=== PATIENT | female | born 1970 | race African-American/Black ===

== ENCOUNTER 2017-06-26 20:50 | Emergency (ER) | payer OTHER, SELFPAY ==
[2017-06-26] MEDS ORDERED: Lidocaine 1% PF 5 ML VIAL ONE (22:37)
== END 2017-06-26 23:26 | disposition home or self-care (01) ==
LOC: ERS 20:50
DX: L03.116 Cellulitis of left lower limb (principal); L02.416 Cutaneous abscess of left lower limb; E11.9 Type 2 diabetes mellitus without complications; F17.210 Nicotine dependence, cigarettes, uncomplicated; Z79.84 Long term (current) use of oral hypoglycemic drugs; Z79.899 Other long term (current) drug therapy
CPT/HCPCS: 10060; J2001

== ENCOUNTER 2017-09-09 15:41 | Emergency (ER) | payer OTHER | END 2017-09-09 15:49 | disposition left against medical advice (07) | LOC: ERS 15:41 | DX: Z53.21 Procedure and treatment not carried out due to patient leaving prior to being seen by health care provider (principal) ==

== ENCOUNTER 2017-09-20 19:22 | Emergency (ER) | payer OTHER, SELFPAY ==
[2017-09-20] MEDS ORDERED: Ketorolac Tromethamine 30 MG/ML VIAL ONE (21:15)
[2017-09-20 21:32] LABS: #Basophils 0.1 thou/uL (0.0-0.2); #Eosinphils 0.2 thou/uL (0.0-0.7); #Lymphocytes 2.4 thou/uL (1.20-3.40); #Monocytes 0.4 thou/uL (0.11-0.59); %Basophils 1.1 % (0.0-1.0); %Eosinophils 2.7 % (0.0-10.0); %Lymphocytes 33.4 % (21.0-51.0); %Monocytes 5.5 % (0.0-10.0); %Neutrophils 57.2 % (42.0-75.0); Mean Corpuscular HGB CONC 33.8 g/dL (32.0-36.0); Mean Corpuscular Hemoglobin 31.1 pg (27.0-31.0); Mean Corpuscular Volume 91.9 fl (81.0-99.0); Platelet Count 315 thou/uL (130-400); RBC Distribution Width 11.6 % (11.5-14.5); Red Blood Cell (RBC) Count 4.51 mill/uL (4.20-5.40)
[2017-09-20 21:52] LABS: ALT (SGPT) 11 U/L (8-55); AST (SGOT) 11 U/L (5-34); Albumin 3.4 g/dL (3.5-5.0); Alkaline Phosphatase 108 U/L (40-150); Anion Gap 15 mmol/L (10-20); BUN (Urea Nitrogen) 12 mg/dL (7.0-18.7); Bilirubin, Total 0.2 mg/dL (0.2-1.2); CRP (Inflammatory) 1.41 mg/dL (= or < 0.5); Calc. Creatinine Clearance 0 mL/min (70-130); Carbon Dioxide 22 mmol/L (22-29); Chloride 104 mmol/L (98-107); Estimated GFR-MDRD 73; Globulin 3.4 g/dL (2.4-3.5); Glucose 418 mg/dL (70-105); Potassium 4.2 mmol/L (3.5-5.1); Protein, Total 6.8 g/dL (6.0-8.3); Sodium 137 mmol/L (136-145)
[2017-09-20] MEDS ORDERED: Insulin Regular 300 UNITS/3 ML VIAL ONE (22:02)
--- NOTE | 2017-09-20 22:09 | ULT ---
RIGHT LOWER EXTREMITY VENOUS DUPLEX EXAM: 09/20/17 HISTORY: Swelling and edema of the right foot. Ultrasound images show a large cystic mass in the right groin which is lateral to the femoral artery. This cystic mass is circumscribed and measures approximately 4 x 6 cm. There is no flow within this mass. The veins of the right lower extremity evaluated with color doppler, spectral analysis and compressio n. There is no evidence of DVT. The veins show normal compression and blood flow. IMPRESSION: 1. There is a large cystic mass in the right groin. This is not a pseudoaneurysm. Could represen t seroma or hematoma. This is not tender according to the technologist. 2. No evidence of right lower extremity venous thrombosis. POS: [facility]
--- NOTE | 2017-09-20 22:18 | RAD ---
RIGHT FOOT: 09/20/17 Three views. HISTORY: Right foot pain. COMPARISON: Right foot films of 10/05/15. Enthesophytes from the posterior and plantar calcaneus are again seen and unchanged. Review of the tarsals reveals what appears to be an ununited fracture involving the navicular seen on ly on the AP projection. This is a new finding when compared to the prior exam of 10/05/15. The tarsals are otherwise unremarkable with mild degenerative changes noted in the intertarsal joints and tarsometatarsal joints. The metatarsals and phalanges appear intact. There are mild degenerative changes at the first MTP neymar nt which appears stable. 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 This is a new finding when compared to the exam of 10/05/15. POS: [facility]
[2017-09-20] MEDS ORDERED: Morphine 4 MG/ML Carpuject ONE ×2 (22:21→22:25)
[2017-09-20] MEDS ORDERED: Ondansetron HCl/PF 4 MG/2 ML Vial ONE (22:21)
== END 2017-09-20 23:38 | disposition home or self-care (01) ==
LOC: ERS 19:22
DX: S92.253A Displaced fracture of navicular [scaphoid] of unspecified foot, initial encounter for closed fracture (principal); E11.9 Type 2 diabetes mellitus without complications; F17.210 Nicotine dependence, cigarettes, uncomplicated; Z79.899 Other long term (current) drug therapy; X50.1XXA Overexertion from prolonged static or awkward postures, initial encounter; Y93.01 Activity, walking, marching and hiking
CPT/HCPCS: 36416; 80053; 85025; 86140; 96365; 96375; J1815; J1885; J2270; J2405; J3370

== ENCOUNTER 2017-10-03 12:03 | Outpatient (CLI) | payer SELFPAY ==
[2017-10-03 13:18] LABS: Hemoglobin 13.7 g/dL (12.0-16.0); Mean Corpuscular HGB CONC 34.2 g/dL (32.0-36.0); Mean Corpuscular Hemoglobin 31.4 pg (27.0-31.0); Mean Corpuscular Volume 91.7 fl (81.0-99.0); Mean Platelet Volume 7.6 fL (7.4-10.4); Platelet Count 394 thou/uL (130-400); RBC Distribution Width 11.2 % (11.5-14.5); Red Blood Cell (RBC) Count 4.38 mill/uL (4.20-5.40); White Blood Cell (WBC) Count 5.9 thou/uL (4.8-10.8)
[2017-10-03 13:46] LABS: ALT (SGPT) 9 U/L (8-55); AST (SGOT) 8 U/L (5-34); Albumin 3.4 g/dL (3.5-5.0); Alkaline Phosphatase 114 U/L (40-150); Anion Gap 11 mmol/L (10-20); BUN (Urea Nitrogen) 13 mg/dL (7.0-18.7); Bilirubin, Total 0.2 mg/dL (0.2-1.2); Calc. Creatinine Clearance 0 mL/min (70-130); Calcium 8.6 mg/dL (7.8-10.44); Carbon Dioxide 27 mmol/L (22-29); Chloride 104 mmol/L (98-107); Estimated GFR-MDRD 80; Globulin 3.1 g/dL (2.4-3.5); Glucose 349 mg/dL (70-105); Potassium 4.1 mmol/L (3.5-5.1); Protein, Total 6.5 g/dL (6.0-8.3); Sodium 138 mmol/L (136-145)
== END 2017-10-03 12:04 | disposition home or self-care (01) ==
LOC: LABBT 12:03
PROVIDERS: ATTEND Orthopaedic Surgery
DX: Z01.812 Encounter for preprocedural laboratory examination (principal); S92.251A Displaced fracture of navicular [scaphoid] of right foot, initial encounter for closed fracture
CPT/HCPCS: 80053; 85027; 85652; 86140

== ENCOUNTER 2017-10-06 10:55 | Day surgery (SDC) | payer OTHER, SELFPAY ==
[2017-10-03 12:26] VITALS: BMI 34.0
[2017-10-06] MEDS ORDERED: CEFAZOLIN/Water 2 GM/20 ML SYRINGE ONE (12:05)
[2017-10-06] MEDS ORDERED: Insulin Regular 300 UNITS/3 ML VIAL ONE (13:37)
[2017-10-06] MEDS ORDERED: Fentanyl 100 MCG/2 ML VIAL ONE ×4 (13:38→16:32)
[2017-10-06] MEDS ORDERED: Ondansetron HCl/PF 4 MG/2 ML Vial ONE (14:57)
[2017-10-06] MEDS ORDERED: Lidocaine 1% PF 5 ML VIAL ONE (14:57)
[2017-10-06] MEDS ORDERED: Ketorolac Tromethamine 30 MG/ML VIAL ONE (14:57)
[2017-10-06] MEDS ORDERED: PHENYLEPHRINE-NS 100 MCG/ML 10 ML SYRINGE ONE (14:57)
[2017-10-06] MEDS ORDERED: PROPOFOL 200 MG/20 ML VIAL ONE (14:57)
[2017-10-06] MEDS ORDERED: Bupivacaine 0.25% HCL 30 ML VIAL ONE (15:51)
[2017-10-06] MEDS ORDERED: Bupivacaine PF 0.5% 30 ML VIAL ONE (15:51)
[2017-10-06] MEDS ORDERED: Promethazine HCl 25 MG/ML VIAL IM PRN (16:15)
[2017-10-06] MEDS ORDERED: Promethazine HCl 25 MG/ML VIAL SLOW IVP PRN (16:15)
[2017-10-06] MEDS ORDERED: Ondansetron HCl/PF 4 MG/2 ML Vial IVP PRN (16:15)
--- NOTE | 2017-10-06 17:11 | RAD ---
THREE VIEWS OF THE RIGHT FOOT: Indication: Open reduction internal fixation. Comparison: 09-20-17 IMPRESSION: Since the comparison examination there has been open reduction and internal fixation of the navicular fracture. Fracture alignment is near anatomic. Screw fixation projects in the appropriate position. POS: [facility]
[2017-10-06] MEDS ORDERED: HYDROcodone/Acetaminophen 5/325 mg Tablet ONE (17:47)
--- NOTE | 2017-10-07 14:32 | OP ---
DATE OF SURGERY: 10/06/2017 PREOPERATIVE DIAGNOSIS: Right foot navicular fracture. POSTOPERATIVE DIAGNOSIS: Right foot navicular fracture. SURGICAL PROCEDURE: Open reduction internal fixation, right navicular fracture. ANESTHESIA: General. SURGEON: Jeffrey Guadarrama M.D. TOURNIQUET TIME: Zero. BLOOD LOSS: Less than 5 mL. IMPLANTS: Synthes 3.5 mm cannulated screws x2. COMPLICATIONS: None. DRAINS: None. SPECIMEN: None. OUTCOME: Satisfactory. INDICATIONS: Patient is a 47-year-old lady, who is status post trip and fall sustaining trauma to he r right midfoot. X-rays have confirmed a transverse fracture of the mid body of the right navicular with gapping. After discussion with patient including risks and benefits, we have decided to proceed with open reduction internal fixation. Informed consent has been obtained. I believe all questions answered. PROCEDURE: The patient was brought to the operating room and a timeout performed followed by inducti on of general anesthesia. Next, a sterile prep and drape was performed of the right lower extremity. Next, under C-arm localization, 2 incisions were made; 1 along the medial aspect of the foot overly ing the navicular bone and the other one laterally. After these incisions were made, dissection was carried down bluntly to the underlying bone and then a Callejas bone clamp was passed through each incis ion clamping the fracture and getting anatomic alignment. This was then followed by insertion of 2 p artially threaded K-wires from the medial aspect of the foot across the fracture line into the latera l fragment. Once appropriately positioned, measurement was taken off of these guidewires and then tw o 28 mm long partially threaded cancellous screws were passed over the guidewire, getting excellent c ompression across the fracture. The guidewires were then removed and the final AP, lateral, and obli que C-arm images were obtained. The wound was then irrigated with normal saline and then closed in l paul with 2-0 Vicryl and 4-0 nylon in horizontal mattress fashion. A Xeroform gauze, Webril, and po sterior fiberglass splint was applied to the leg and then patient was transferred to recovery room in stable condition. There were no complications. She tolerated the procedure well.
== END 2017-10-06 18:30 | disposition home or self-care (01) ==
LOC: SDC 10:55
PROVIDERS: ATTEND Orthopaedic Surgery
PROC: 0PSM04Z Reposition Right Carpal with Internal Fixation Device, Open Approach (ICD-10-PCS; principal; 2017-10-06)
DX: S92.251A Displaced fracture of navicular [scaphoid] of right foot, initial encounter for closed fracture (principal); E11.9 Type 2 diabetes mellitus without complications; F17.200 Nicotine dependence, unspecified, uncomplicated; Z79.84 Long term (current) use of oral hypoglycemic drugs; Z90.710 Acquired absence of both cervix and uterus; Z98.890 Other specified postprocedural states; Z83.3 Family history of diabetes mellitus
CPT/HCPCS: 36416; 76001; 96374; C1713; C1769; J1815; J1885; J2001; J2405; J2704; J3010; S0020

== ENCOUNTER 2017-12-31 10:20 | Outpatient (CLI) | payer OTHER, SELFPAY | END 2017-12-31 10:21 | disposition home or self-care (01) | LOC: LABBT 10:20 | PROVIDERS: ATTEND Orthopaedic Surgery | DX: Z01.818 Encounter for other preprocedural examination (principal); S92.254 Nondisplaced fracture of navicular [scaphoid] of right foot ==

== ENCOUNTER 2018-01-07 10:43 | Day surgery (SDC) | payer OTHER, SELFPAY ==
[2017-12-31 10:36] VITALS: BMI 31.0
[2018-01-07] MEDS ORDERED: CEFAZOLIN/Water 2 GM/20 ML SYRINGE ONE (11:04)
[2018-01-07] MEDS ORDERED: Midazolam HCl 2 mg/2 ml Vial ONE ×2 (11:37→12:25)
[2018-01-07] MEDS ORDERED: Fentanyl 100 MCG/2 ML VIAL ONE ×3 (11:37→15:10)
[2018-01-07] MEDS ORDERED: Ondansetron HCl/PF 4 MG/2 ML Vial IVP PRN (12:23)
[2018-01-07] MEDS ORDERED: Zolpidem Tartrate 5 MG TAB PO PRN (12:23)
[2018-01-07] MEDS ORDERED: Ketorolac Tromethamine 30 MG/ML VIAL IVP PRN (12:23)
[2018-01-07] MEDS ORDERED: Ropivacaine HCl/PF 1,000 MG in Sodium Chloride 0.9% 400 ML NERVE BLCK SCH (12:23)
[2018-01-07] MEDS ORDERED: Promethazine HCl 25 MG/ML VIAL IM PRN (12:23)
[2018-01-07] MEDS ORDERED: Ondansetron HCl/PF 4 MG/2 ML Vial ONE ×2 (12:25→14:29)
[2018-01-07] MEDS ORDERED: Bupivacaine HCl 0.5%/Epinephrine 1:200,000/PF 30 ml Vial ONE ×2 (13:23→14:22)
[2018-01-07] MEDS ORDERED: Ropivacaine 0.2% HCl/PF (40 MG/20 ML VIAL) ONE (14:22)
[2018-01-07] MEDS ORDERED: Ropivacaine 0.5% HCl/PF (150 MG/30 ML VIAL) ONE (14:22)
[2018-01-07] MEDS ORDERED: ePHEDrine/0.9% NaCl/PF SYRINGE 50 mg/10 ml ONE (14:29)
[2018-01-07] MEDS ORDERED: PROPOFOL 200 MG/20 ML VIAL ONE (14:29)
[2018-01-07] MEDS ORDERED: Dexamethasone 20 MG/5 ML VIAL ONE (14:29)
[2018-01-07] MEDS ORDERED: Ketorolac Tromethamine 30 MG/ML VIAL ONE ×2 (14:29→14:57)
[2018-01-07] MEDS ORDERED: Lidocaine 1% PF 5 ML VIAL ONE (14:29)
--- NOTE | 2018-01-07 18:14 | RAD ---
RIGHT FOOT THREE VIEWS: 01/07/18 HISTORY: Intraoperative films showing hardware removal and replacement. COMPARISON: 10/06/17 C-arm study. Since that examination, there has now been a plate and screws placed across the navicular fracture. T he previously noted screws have been removed. IMPRESSION: Postoperative changes with plate and screws placed across the navicular fracture. POS: [facility]
--- NOTE | 2018-01-08 12:21 | OP ---
DATE OF OPERATION: 01/07/2018 OPERATIONS: 1. Open reduction and internal fixation of right navicular fracture. 2. Hardware removal from right navicular bone. 3. Bone graft from right calcaneus to right navicular. PREOPERATIVE DIAGNOSIS: Right navicular fracture nonunion. POSTOPERATIVE DIAGNOSIS: Right navicular fracture nonunion. COMPLICATIONS: None. SURGEON: Matt Freeman M.D. ANESTHESIA: General plus local. IMPLANTS: Synthes mini fragment plate with 2.7 mm locking screws was used. INDICATIONS: Ms. Weiner is a 47-year-old female who has developed a nonunion of a navicular fractur e. She was treated previously with fixation of the navicular; however, her bone fail to heal. She w as indicated for bone grafting and open reduction and internal fixation of the navicular bone to rest ore function and relieve pain and promote healing. Risks have been reviewed in detail. She has elec bryanna to proceed with the operation. DESCRIPTION OF PROCEDURE: Ms. Weiner was identified in the preoperative holding area. Her correct extremity was marked. She was given intravenous antibiotics. She was carried to the operating room and positioned supine. General anesthesia was induced. At this point, we began the procedure with a dorsal approach to the navicular bone. We dissected lauren n through the subcutaneous tissues, protecting neurovascular structures and tendons. We exposed the underlying navicular and fracture site. There was clearly nonunion of the fracture. At this point, we removed the percutaneously placed screws from the medial navicular. We then freed up the fracture site shingling the bone with an osteotome. At this point, a small incision was made over the calcan eus. We then used an osteotome to open the lateral cortex of the calcaneus and used a curette to lori vest bone graft from the calcaneus. This was packed into the fracture site. We then placed a reduct ion tenaculum across the navicular reducing the fracture back into its anatomic position. At this po int, we placed a Synthes mini fragment footplate over the dorsal cortex of the navicular. Multiple s crews were placed on either side of the fracture fixing the bone rigidly. We took x-ray images confi rming hardware placement and reduction. There were no complications. At this point, we thoroughly i rrigated with copious lavage. We then closed with 0 Vicryl suture, 2-0 Vicryl suture and nylon for t he skin and a splint was placed.
== END 2018-01-07 16:52 | disposition home or self-care (01) ==
LOC: SDC 10:43
PROVIDERS: ATTEND Orthopaedic Surgery
PROC: 0QUL07Z Supplement Right Tarsal with Autologous Tissue Substitute, Open Approach (ICD-10-PCS; principal; 2018-01-07)
PROC: 0SPH04Z Removal of Internal Fixation Device from Right Tarsal Joint, Open Approach (ICD-10-PCS; principal; 2018-01-07)
PROC: 0QSL04Z Reposition Right Tarsal with Internal Fixation Device, Open Approach (ICD-10-PCS; principal; 2018-01-07)
DX: S92.251K Displaced fracture of navicular [scaphoid] of right foot, subsequent encounter for fracture with nonunion (principal); E11.9 Type 2 diabetes mellitus without complications; F17.210 Nicotine dependence, cigarettes, uncomplicated; Z79.84 Long term (current) use of oral hypoglycemic drugs; Z98.890 Other specified postprocedural states
CPT/HCPCS: 76000; 96374; J0670; J1100; J1885; J2001; J2250; J2405; J2704; J2795; J3010; J7050

== ENCOUNTER 2018-09-28 16:32 | Observation (INO) | payer OTHER, SELFPAY ==
[2018-09-28 19:58] LABS: #Basophils 0.1 thou/uL (0.0-0.2); #Eosinphils 0.2 thou/uL (0.0-0.7); #Lymphocytes 2.5 thou/uL (1.20-3.40); #Monocytes 0.4 thou/uL (0.11-0.59); #Neutrophils 2.3 thou/uL (1.40-6.50); %Basophils 1.5 % (0.0-1.0); %Eosinophils 4.5 % (0.0-10.0); %Lymphocytes 44.7 % (21.0-51.0); %Monocytes 7.9 % (0.0-10.0); %Neutrophils 41.4 % (42.0-75.0); Hemoglobin 12.6 g/dL (12.0-16.0); Mean Corpuscular HGB CONC 33.9 g/dL (32.0-36.0); Mean Corpuscular Hemoglobin 30.7 pg (27.0-31.0); Mean Corpuscular Volume 90.5 fL (78.0-98.0); Mean Platelet Volume 8.5 fL (7.4-10.4); Platelet Count 272 thou/uL (130-400); RBC Distribution Width 11.7 % (11.5-14.5); Red Blood Cell (RBC) Count 4.09 mill/uL (4.20-5.40); White Blood Cell (WBC) Count 5.5 thou/uL (4.8-10.8)
[2018-09-28] MEDS ORDERED: Clindamycin/D5W 600 mg/50 ml Premix Bag ONE (20:20)
[2018-09-28 20:23] LABS: ALT (SGPT) 7 U/L (8-55); AST (SGOT) 8 U/L (5-34); Albumin 3.4 g/dL (3.5-5.0); Alkaline Phosphatase 129 U/L (40-150); Anion Gap 11 mmol/L (10-20); BUN (Urea Nitrogen) 9 mg/dL (7.0-18.7); Bilirubin, Total 0.4 mg/dL (0.2-1.2); Calc. Creatinine Clearance 0 mL/min (70-130); Calcium 9.2 mg/dL (7.8-10.44); Carbon Dioxide 26 mmol/L (22-29); Chloride 103 mmol/L (98-107); Estimated GFR-MDRD 79; Globulin 2.8 g/dL (2.4-3.5); Glucose 321 mg/dL (70-105); Potassium 3.9 mmol/L (3.5-5.1); Protein, Total 6.2 g/dL (6.0-8.3); Sodium 136 mmol/L (136-145)
[2018-09-28] MEDS ORDERED: Morphine 4 MG/ML VIAL ONE (20:39)
[2018-09-28] MEDS ORDERED: Morphine 4 MG/ML VIAL SLOW IVP PRN (23:20)
[2018-09-28] MEDS ORDERED: Ondansetron ODT 4 MG TAB SL PRN (23:20)
[2018-09-28] MEDS ORDERED: Ondansetron PF 4 MG/2 ML Vial IVP PRN (23:20)
[2018-09-28] MEDS ORDERED: Acetaminophen 325 MG TAB PO PRN (23:20)
[2018-09-29] MEDS ORDERED: Morphine 4 MG/ML VIAL ONE (00:32)
[2018-09-29 02:12] VITALS: BMI 28.6
[2018-09-29] MEDS: Sodium Chloride 0.9% 1,000 ML IV SCH ×2 (03:02→08:34)
[2018-09-29] MEDS ORDERED: HumaLOG 300 UNITS/3 ML VIAL SC PRN (03:52)
[2018-09-29] MEDS ORDERED: Dextrose 50% Abboject 50 ML SYRINGE SLOW IVP PRN (03:52)
[2018-09-29] MEDS ORDERED: Dextrose 5% in Water 1,000 ML IV PRN (03:52)
[2018-09-29] MEDS ORDERED: HumaLOG 300 UNITS/3 ML VIAL SC SCH (04:00)
[2018-09-29] MEDS ORDERED: Clindamycin/D5W 600 MG in Premix Bag 1 BAG IVPB SCH ×2 (04:00→09:00)
[2018-09-29 08:03] LABS: Hemoglobin A1c 11.5 % (4.0-6.0)
[2018-09-29] MEDS: Lisinopril 20 MG TAB PO SCH (08:43)
[2018-09-29] MEDS: Ibuprofen 800 MG TAB PO PRN ×2 (10:42→18:27)
[2018-09-29] MEDS: HYDROcodone/Acetaminophen 5/325 mg Tablet PO PRN ×3 (10:42→21:14)
[2018-09-29] MEDS ORDERED: Acetaminophen 325 MG TAB PO PRN (11:24)
[2018-09-29] MEDS ORDERED: Senokot S 8.6-50 MG TAB PO PRN (11:24)
[2018-09-29] MEDS ORDERED: Ondansetron ODT 4 MG TAB PO PRN (11:24)
[2018-09-29] MEDS ORDERED: Ondansetron PF 4 MG/2 ML Vial IVP PRN (11:24)
[2018-09-29] MEDS: HumaLOG 300 UNITS/3 ML VIAL SC PRN ×2 (11:56→18:05)
[2018-09-29] MEDS: Nicotine 14 MG PATCH TD SCH (12:00)
[2018-09-29] MEDS: Clindamycin/D5W 600 MG in Premix Bag 1 BAG IVPB SCH ×2 (12:00→21:10)
[2018-09-29] MEDS: Mupirocin 2% Ointment 22 GM Tube TOP SCH ×2 (14:26→21:11)
--- NOTE | 2018-09-29 17:39 | HP ---
PRIMARY CARE PHYSICIAN: Elise Randle. CHIEF COMPLAINT: Ear sore with spreading pain. HISTORY OF PRESENT ILLNESS: This is a 48-year-old female, known history of diabetes mellitus type 2 poorly controlled, has not been seeing a doctor recently due to no insurance that she recently got insurance to her job. She reports that 5 days ago she developed a painful sore on the top of her right ear. She reports that the day before she had felt something crawl there and fall off onto her shirt when she was never and she did feel any pain at that time. She developed sore that got increasingly painful, red and the redness and pain started spreading down her ear, then pain started spreading down behind her ear and onto her neck. She had a little bit of nausea, no fever, a little bit of cough, congestion, and sore throat as well. She was seen in the emergency room, given Bactrim. She had tried some Neosporin ointment for one day only and was told not to use anymore. After a couple of doses of Bactrim, the pain and swelling were getting worse, so she came back to the ER and so she was put in the hospital for IV antibiotics with dose of clindamycin ordered from the emergency room. PAST MEDICAL HISTORY: 1. Diabetes mellitus type 2, on oral hypoglycemics. 2. Previous TIA. 3. Obesity. 4. Hypertriglyceridemia. 5. Hypertension per previous discharge summary of the hospital. She does not know about this diagnosis. 6. Diabetic peripheral neuropathy. PAST SURGICAL HISTORY: 1. Partial hysterectomy. 2. Tubal ligation. 3. Cholecystectomy. SOCIAL HISTORY: The patient smokes a pack of cigarettes per day. No alcohol or illicit drug use. 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 FAMILY HISTORY: Mother of diabetes and its complications at age 65. Father was shot down when she was 3 years old. There is also history of cancer in the family. ALLERGIES: NO KNOWN DRUG ALLERGIES. CURRENT MEDICATIONS: Glipizide extended release 10 mg twice a day. She was recommended to be on aspirin, low-dose lisinopril, and atorvastatin after her last hospitalization for TIA in 2016, however, she has not been taking these for a long time. REVIEW OF SYSTEMS: CONSTITUTIONAL: No fevers. No chills. EYES: No double vision or blurred vision. ENT: See HPI. CARDIOVASCULAR: No chest pain. No palpitations or racing heart. PULMONARY: See HPI. No shortness of breath or wheezing. GASTROINTESTINAL: Nausea. No vomiting. No abdominal pain. No diarrhea or constipation. GENITOURINARY: No dysuria or hematuria. MUSCULOSKELETAL: No muscle aches or joint pains. SKIN: See HPI. NEUROLOGIC: She has chronic numbness and tingling in bilateral feet and legs from diabetic neuropathy. No other focal neurologic symptoms. PHYSICAL EXAMINATION: VITAL SIGNS: Blood pressure 170/83, pulse 95, respirations 20, O2 saturation 98 % on room air, and temperature 98.0. GENERAL: This is a well-developed, obese female, in no acute distress. HEENT: Pupils equal, round, and reactive to light. Oropharynx clear without lesions, erythema, or exudate. Her bilateral external auditory canals are clear. However, her right ear at the top of the external ear over the cartilage, she has a large about 2 cm area of some induration with excoriation and loss of the epidermis, ulceration. No drainage from this. No pus pockets or fluctuance noted. Minimal erythema looks very macerated and irritated, and then she has some tenderness in the posterior mastoid area and posterior auricular lymph nodes. There is no significant swelling in this area. No redness. NECK: Supple. No lymphadenopathy. No thyroid nodules or enlargement. No JVD. HEART: Regular rate and rhythm. No murmurs, rubs, or gallops. LUNGS: Clear to auscultation bilaterally. No wheezes, crackles, or rhonchi. ABDOMEN: Soft and nontender to palpation. Normoactive bowel sounds. No hepatosplenomegaly or other masses. EXTREMITIES: No clubbing, cyanosis, or edema. SKIN: See ENT exam above. No other skin lesions noted. NEUROLOGIC: She has intact strength in all extremities. No facial droop. LABORATORY DATA: CBC within normal limits. Complete metabolic panel notable for glucose of 321 and an albumin of 3.4. The rest was normal. ASSESSMENT: 1. Infected skin abscess/ulcer on right external ear with spreading symptoms. This is failed outpatient oral antibiotic therapy, so we will do clindamycin over the course of today and reassess in the morning. If it improves on the clindamycin, then we can send her home with oral clindamycin. She does have blood cultures pending; however, she does not have any evidence of sepsis, so I doubt those will come back positive. Other possibilities are just looks like it could be a skin allergy. However, the patient denies having used any regular chemicals in this area and just used Neosporin for 1 day when it was already irritated. It might also be a toxic effect from an insect bite or spider bite. We will watch closely for any signs of spreading necrosis. 2. Diabetes mellitus type 2, uncontrolled. Her hemoglobin A1c is above 11. The patient will need to have her medications titrated up. I am going to go ahead and she states that she cannot take metformin due to diarrhea, it persists even a year after institution. We will go ahead and start her on some Actos and continue her glipizide. We will also put her on fingerstick blood sugars and a light insulin sliding scale. She did get a little hypoglycemic when they gave her full 8 units of insulin in the emergency room for high blood sugar, so we will not go to aggressive with the insulin and also put her on a diabetic diet. 3. Elevated blood pressure. The patient does have a history of hypertension that she did not remember about it and is on no medication for it. She was started on lisinopril in the hospital here previously and we now have her on 20 mg daily given this morning. She had some elevated blood pressure this morning and not recheck yet. If it does not come down with lisinopril, we can add some more on top of that. We used some hydrochlorothiazide in addition to it. 4. Previous transient ischemic attack. We will resume low-dose aspirin and atorvastatin as recommended on her last hospitalization. 5. Tobacco abuse. Recommend that the patient quit and we will give her cessation counseling and resources. We will give her a Nicoderm patch 14 mg transdermal q.24 hours when she is in the hospital. 6. Gastrointestinal prophylaxis. The patient is on Pepcid twice a day. 7. Deep venous thrombosis prophylaxis. We will put the patient on SCDs while in bed. 8. Code status. The patient is a full code. Her nearest relative is her brother, Julio Weiner. Job ID: [id number] MTDD
[2018-09-29] MEDS ORDERED: Atorvastatin Calcium 20 MG TAB PO SCH (21:00)
[2018-09-29] MEDS: Famotidine 20 MG TAB PO SCH (21:14)
[2018-09-29] MEDS ORDERED: Melatonin 3 MG TAB PO PRN (23:53)
[2018-09-30] MEDS: HYDROcodone/Acetaminophen 5/325 mg Tablet PO PRN ×5 (03:09→18:06)
[2018-09-30] MEDS: Ibuprofen 800 MG TAB PO PRN (03:10)
[2018-09-30] MEDS: Clindamycin/D5W 600 MG in Premix Bag 1 BAG IVPB SCH ×2 (04:25→11:34)
[2018-09-30 06:32] LABS: #Basophils 0.1 thou/uL (0.0-0.2); #Eosinphils 0.2 thou/uL (0.0-0.7); #Lymphocytes 2.2 thou/uL (1.20-3.40); #Monocytes 0.4 thou/uL (0.11-0.59); #Neutrophils 1.6 thou/uL (1.40-6.50); %Basophils 1.9 % (0.0-1.0); %Eosinophils 4.1 % (0.0-10.0); %Lymphocytes 48.4 % (21.0-51.0); %Monocytes 9.4 % (0.0-10.0); %Neutrophils 36.2 % (42.0-75.0); Hemoglobin 11.1 g/dL (12.0-16.0); Mean Corpuscular HGB CONC 32.1 g/dL (32.0-36.0); Mean Corpuscular Hemoglobin 29.5 pg (27.0-31.0); Mean Corpuscular Volume 91.8 fL (78.0-98.0); Mean Platelet Volume 7.8 fL (7.4-10.4); Platelet Count 237 thou/uL (130-400); Red Blood Cell (RBC) Count 3.76 mill/uL (4.20-5.40); White Blood Cell (WBC) Count 4.5 thou/uL (4.8-10.8)
[2018-09-30 06:59] LABS: Anion Gap 11 mmol/L (10-20); BUN (Urea Nitrogen) 12 mg/dL (7.0-18.7); Calc. Creatinine Clearance 112 mL/min (70-130); Calcium 8.2 mg/dL (7.8-10.44); Carbon Dioxide 26 mmol/L (22-29); Chloride 108 mmol/L (98-107); Estimated GFR-MDRD 86; Glucose 97 mg/dL (70-105); Sodium 141 mmol/L (136-145)
--- NOTE | 2018-09-30 07:46 | PDOC.PN ---
- Subjective Encounter Start Date: 09/30/18 Encounter Start Time: 09:50 Subjective: Patient with no fever overnight. Pain in ear improved. No drainage. - Objective Resuscitation Status - Order Detail: 09/29/18 11:22 Resuscitation Status Routine Resuscitation Status: FULL: Full Resuscitation MAR Reviewed: Yes Vital Signs & Weight: Vital Signs (12 hours) Temp Pulse Resp BP Pulse Ox 09/30/18 03:05 97.8 F 80 20 137/67 97 09/29/18 23:56 97.8 F 80 18 143/74 H 99 09/29/18 20:55 97.8 F 88 18 132/62 98 Weight Admit Weight 194 lb 0.108 oz Weight 194 lb 0.108 oz I&O: 09/29/18 09/30/18 10/01/18 06:59 06:59 06:59 Intake Total 1050 4940 Balance 1050 4940 Result Diagrams: 09/30/18 06:17 09/30/18 06:17 Additional Labs: Accuchecks 09/30/18 09/29/18 09/29/18 06:12 23:15 20:57 POC Glucose 149 H 123 H 91 09/29/18 09/29/18 09/29/18 17:08 13:08 11:30 POC Glucose 214 H 289 H 216 H Phys Exam - Physical Examination Constitutional: NAD HEENT: moist MMs Ulcer on right external ear unchanged, no surrounding erythema, minimal TTP of posterior lymph nodes without swelling/redness/warmth Respiratory: no wheezing, no rales, no rhonchi Cardiovascular: RRR, no significant murmur Gastrointestinal: soft, positive bowel sounds Neurological: non-focal, moves all 4 limbs Psychiatric: normal affect, A&O x 3 Dx/Plan (1) Skin infection Code(s): L08.9 - LOCAL INFECTION OF THE SKIN AND SUBCUTANEOUS TISSUE, UNSP Status: Acute Comment: ulcer and infection to right ear, on Clindamycin (2) Diabetes mellitus type 2, uncontrolled Code(s): E11.65 - TYPE 2 DIABETES MELLITUS WITH HYPERGLYCEMIA Status: Chronic (3) Hypertension Code(s): I10 - ESSENTIAL (PRIMARY) HYPERTENSION Status: Chronic Qualifiers: Hypertension type: essential hypertension Qualified Code(s): I10 - Essential (primary) hypertension Comment: improved on Lisinopril (4) Hx-TIA (transient ischemic attack) Code(s): Z86.73 - PRSNL HX OF TIA (TIA), AND CEREB INFRC W/O RESID DEFICITS Status: Chronic Comment: Resuming Aspirin and Atorvastatin - Plan cont current plan of care, DVT proph w/SCDs D/C on oral abx today, follow up with PCP to assess healing * . - Discharge Day Encounter end time: 10:00
[2018-09-30 08:07] VITALS: TEMP 98.1
[2018-09-30] MEDS ORDERED: Pioglitazone HCl 15 MG TAB PO SCH (09:00)
[2018-09-30] MEDS ORDERED: Aspirin Chewable 81 MG TAB PO SCH (09:00)
[2018-09-30] MEDS: Famotidine 20 MG TAB PO SCH (09:14)
[2018-09-30] MEDS: Lisinopril 20 MG TAB PO SCH (09:15)
[2018-09-30] MEDS: Mupirocin 2% Ointment 22 GM Tube TOP SCH ×2 (09:16→14:23)
[2018-09-30] MEDS: Nicotine 14 MG PATCH TD SCH (11:33)
[2018-09-30] MEDS ORDERED: Sodium Chloride 0.9% 10 ML ONE (12:22)
--- NOTE | 2018-09-30 14:57 | DIS ---
DATE OF ADMISSION: 09/28/2018 DATE OF DISCHARGE: 09/30/2018 PRIMARY CARE PHYSICIAN: Elise Randle. REASON FOR ADMISSION: Right external ear infection, failed outpatient antibiotic therapy. DIAGNOSES AT DISCHARGE: 1. Infected ulcer of the right external ear. 2. Diabetes mellitus type 2, uncontrolled. 3. Hypertension. 4. Previous transient ischemic attack. PROCEDURES: None. CONSULTATIONS: None. SUMMARY OF HOSPITAL COURSE: This is a 48-year-old female with a known history of diabetes mellitus type 2, poorly controlled, not seen a doctor recently. She is on no medicine for previous diagnosis of hypertension, hyperlipidemia, and previous TIA, just takes glipizide once a day, though she holds that if she feels like her blood sugar might be low. The patient reports that she thinks she felt a bug or spider something jump off her ear last week and the next day last , she noticed a painful swelling on her right upper external ear. This has progressed over the weekend. The patient was put on Bactrim and took about a day of the medication 2 doses and did not notice any improvement, so she came back to the emergency room. In the ER, she was diagnosed with failed outpatient therapy and was put on IV clindamycin and put in the hospital. We did give her multiple doses of IV clindamycin. She had no spreading redness. No fever. No pus drainage from the ear. The skin did slough over part of the swollen area leaving an ulceration. Otherwise, the patient was doing well. We did restart blood pressure medications and medications to control cholesterol and prevent stroke. On the day of discharge, the patient was doing well. She is being discharged home. DISCHARGE MANAGEMENT: Discharged home. FOLLOWUP: The patient is to establish with a primary care physician in the next week to reassess healing of this ulceration. If it is not improving over the next 1-2 weeks, she may need outpatient subspecialty consultation with Infectious Disease or ENT. ACTIVITY: As tolerated. DIET: Diabetic low-sodium diet. MEDICATIONS: 1. Aspirin 81 mg daily, 30 tablets dispensed. 2. Atorvastatin 20 mg daily, 30 tablets dispensed. 3. Clindamycin 150 mg four times a day, 40 capsules dispensed. 4. Ibuprofen 800 mg every 8 hours as needed for pain, 30 tablets dispensed. 5. Lisinopril 20 mg daily, 30 tablets dispensed. 6. Glipizide 10 mg twice a day, 60 tablets dispensed. Job ID: [id number]
[2018-09-30] MEDS ORDERED: cloNIDine 0.1 MG TAB PO SCH (16:15)
[2018-09-30 18:22] VITALS: BP 161/79
== END 2018-09-30 18:46 | disposition home or self-care (01) ==
LOC: ERS 16:32 → ERHOLD 21:31 → 3SE 09-29 01:20
PROVIDERS: ADMIT Internal Medicine; ATTEND Internal Medicine
DX: E11.622 Type 2 diabetes mellitus with other skin ulcer (principal); L98.491 Non-pressure chronic ulcer of skin of other sites limited to breakdown of skin; E78.5 Hyperlipidemia, unspecified; E11.42 Type 2 diabetes mellitus with diabetic polyneuropathy; F17.210 Nicotine dependence, cigarettes, uncomplicated; E11.65 Type 2 diabetes mellitus with hyperglycemia; I10 Essential (primary) hypertension; E66.9 Obesity, unspecified; Z68.28 Body mass index [BMI] 28.0-28.9, adult; Z86.73 Personal history of transient ischemic attack (TIA), and cerebral infarction without residual deficits; Z79.84 Long term (current) use of oral hypoglycemic drugs; Z79.899 Other long term (current) drug therapy
CPT/HCPCS: 36415; 36416; 80048; 80053; 83036; 83605; 85025; 87040; 96361; 96365; 96375; 96376; G0378; J2270; J3490; Q0162

== ENCOUNTER 2018-11-18 00:33 | Observation (INO) | payer SELFPAY ==
[2018-11-18] MEDS ORDERED: Nitroglycerin 2% Ointment 1 INCH/1 GM Packet ONE (01:16)
[2018-11-18] MEDS ORDERED: Nitroglycerin 0.4 MG TAB 1 EACH ONE (01:16)
[2018-11-18] MEDS ORDERED: Aspirin Chewable 81 MG TAB ONE (01:16)
[2018-11-18 02:03] LABS: #Basophils 0.1 thou/uL (0.0-0.2); #Eosinphils 0.2 thou/uL (0.0-0.7); #Lymphocytes 2.4 thou/uL (1.20-3.40); #Monocytes 0.4 thou/uL (0.11-0.59); #Neutrophils 3.5 thou/uL (1.40-6.50); %Basophils 1.5 % (0.0-1.0); %Eosinophils 3.5 % (0.0-10.0); %Lymphocytes 36.4 % (21.0-51.0); %Monocytes 5.8 % (0.0-10.0); %Neutrophils 52.8 % (42.0-75.0); Hemoglobin 12.3 g/dL (12.0-16.0); Mean Corpuscular HGB CONC 33.2 g/dL (32.0-36.0); Mean Corpuscular Hemoglobin 30.4 pg (27.0-31.0); Mean Corpuscular Volume 91.4 fL (78.0-98.0); Mean Platelet Volume 8.2 fL (7.4-10.4); Platelet Count 307 thou/uL (130-400); RBC Distribution Width 11.7 % (11.5-14.5); Red Blood Cell (RBC) Count 4.06 mill/uL (4.20-5.40); White Blood Cell (WBC) Count 6.7 thou/uL (4.8-10.8)
[2018-11-18 02:23] LABS: ALT (SGPT) 12 U/L (8-55); AST (SGOT) 9 U/L (5-34); Albumin 3.3 g/dL (3.5-5.0); Alkaline Phosphatase 109 U/L (40-150); Anion Gap 10 mmol/L (10-20); BUN (Urea Nitrogen) 18 mg/dL (7.0-18.7); Bilirubin, Total Less than 0.2 mg/dL (0.2-1.2); CK (CPK) 106 U/L (29-168); Calc. Creatinine Clearance 0 mL/min (70-130); Calcium 8.7 mg/dL (7.8-10.44); Carbon Dioxide 28 mmol/L (22-29); Chloride 107 mmol/L (98-107); Estimated GFR-MDRD 66; Globulin 2.8 g/dL (2.4-3.5); Glucose 186 mg/dL (70-105); Potassium 3.8 mmol/L (3.5-5.1); Protein, Total 6.1 g/dL (6.0-8.3); Sodium 141 mmol/L (136-145)
[2018-11-18 02:26] LABS: BHCG - Serum Negative (NEGATIVE); Pregs Control Background? CLEAR/WHITE (CLR/WHITE); Pregs Control Bar Appear? YES (CONTROL BAR)
[2018-11-18 02:29] LABS: Bilirubin Negative (Negative); Blood, Urine Moderate (Negative); Clarity CLEAR (Clear); Glucose, Urine (Dipstick) 100 mg/dL (Negative); Leukocyte Negative (Negative); Nitrite Negative (Negative); Protein, Urine (Dipstick) 300 mg/dL (Neg-Trace); Specific Gravity, Urine 1.022 (1.002-1.036)
[2018-11-18 02:32] LABS: Bacteria/HPF None Seen HPF (None Seen); Pathc Cast-AUWi Flag 0.27 (0-2.49); Squamous Epithelial 0-3 HPF (0-3); WBC/HPF 0-3 HPF (0-3)
[2018-11-18 02:37] LABS: Hyaline Casts/LPF NONE SEEN LPF (0-3 Hyaline)
[2018-11-18] MEDS ORDERED: Acetaminophen 500 MG TAB ONE (03:00)
[2018-11-18] MEDS ORDERED: Morphine 4 MG/ML VIAL ONE (03:24)
[2018-11-18] MEDS ORDERED: Ondansetron PF 4 MG/2 ML Vial IVP PRN (04:15)
[2018-11-18] MEDS ORDERED: Zolpidem Tartrate 5 MG TAB PO PRN (04:15)
[2018-11-18] MEDS ORDERED: Dextrose 5% in Water 1,000 ML IV PRN (04:18)
[2018-11-18] MEDS ORDERED: HumaLOG 300 UNITS/3 ML VIAL SC PRN (04:18)
[2018-11-18] MEDS ORDERED: Dextrose 50% Abboject 50 ML SYRINGE SLOW IVP PRN (04:18)
[2018-11-18 07:22] LABS: Troponin I Less than 0.010 ng/mL (< 0.028)
--- NOTE | 2018-11-18 08:11 | RAD ---
CHEST 1 VIEW: Date: 11/18/18 INDICATION: High blood pressure, chest pain. COMPARISON: None. FINDINGS: Lungs are clear. Heart size is within normal limits. No acute osseous abnormality is evident. IMPRESSION: No acute abnormality. POS: [facility]
[2018-11-18 08:54] LABS: Troponin I Less than 0.010 ng/mL (< 0.028)
[2018-11-18] MEDS ORDERED: Acetaminophen 325 MG TAB ONE ×2 (09:35→14:57)
[2018-11-18] MEDS ORDERED: Famotidine 20 MG TAB ONE (09:39)
[2018-11-18] MEDS: Famotidine 20 MG TAB PO SCH ×2 (09:43→21:33)
[2018-11-18] MEDS: Acetaminophen 325 MG TAB PO PRN ×3 (09:44→21:33)
--- NOTE | 2018-11-18 09:53 | CT ---
PRELIMINARY REPORT/[facility]/EMERGENTY AFTER-HOURS PROCEDURE CT Head Without Contrast EXAM DATE/TIME: 11/18/2018 2:04 AM CLINICAL HISTORY: 48 years old, female; Signs and symptoms; Dizziness; Patient HX: PT reports her blood pressure has be en up for the last 3 days and won't go down. PT reports chest pain that started tonight and reports b lurry vision as well. PT reports some increased work of breathing recently but reports she thinks it is because she was recently sick. PT reports she has been eating and drinking okay and tatianna es any problems with urination or bowel movements. PT reports smoking TECHNIQUE: Imaging protocol: Axial computed tomography images of the head/brain without contrast. COMPARISON: No relevant prior studies available. FINDINGS: Brain: Mild volume loss. No acute intracranial hemorrhage, midline shift or mass effect. Ventricles: No hydrocephalus. Bones/joints: Unremarkable. No acute fracture. Sinuses: Opacification of the visualized left maxillary sinus. Scattered additional paranasal sinus d isease. Mastoid air cells: Visualized mastoid air cells are unremarkable. No mastoid effusion. Soft tissues: Unremarkable. IMPRESSION: No acute intracranial abnormality. Thank you for allowing us to participate in the care of your patient. Dictated and Authenticated by: Jose Raul Chen MD 11/18/2018 2:53 AM Central Time ([place] & [place]) FINAL REPORT EMERGENCY AFTER HOURS CT BRAIN: Date: 11/18/18 FINDINGS/IMPRESSION: I agree with the preliminary report provided by [facility]. No acute intracranial abnormality demonstrated. POS:
[2018-11-18] MEDS: Nicotine 14 MG PATCH TOP SCH (10:34)
--- NOTE | 2018-11-18 11:00 | PDOC.PN ---
- Subjective Encounter Start Date: 11/18/18 Encounter Start Time: 10:58 Ms. Weiner was seen today in follow-up of severe headache,elevated blood pressure. She is having a bad headache now, but says the blurred vision is better. She no longer has any chest pain. - Objective MAR Reviewed: Yes Result Diagrams: 11/18/18 01:53 11/18/18 01:53 Additional Labs: Accuchecks 11/18/18 07:54 POC Glucose 93 Phys Exam - Physical Examination HEENT: PERRLA Respiratory: no wheezing, no rales, no rhonchi, clear to auscultation bilateral Cardiovascular: RRR, no significant murmur, no rub Gastrointestinal: soft, non-tender, no distention, positive bowel sounds Musculoskeletal: no edema, pulses present Dx/Plan (1) Hypertensive urgency Code(s): I16.0 - HYPERTENSIVE URGENCY Status: Acute (2) Diabetes mellitus type 2 in nonobese Code(s): E11.9 - TYPE 2 DIABETES MELLITUS WITHOUT COMPLICATIONS Status: Chronic (3) Diabetic neuropathy Code(s): E11.40 - TYPE 2 DIABETES MELLITUS WITH DIABETIC NEUROPATHY, UNSP Status: Acute - Plan * Severe headache and chest pain- these are both likely due to hypertensive Urgency * She was off all medication for a week due to a viral illness * Will re-start her home medications. * She has already been given a referral to the [facility] * DM- re-start her home medications as well as A SSI * Hopefully home later today or in the AM.
[2018-11-18] MEDS ORDERED: Lisinopril 10 MG TAB ONE (12:10)
[2018-11-18] MEDS ORDERED: HumaLOG 300 UNITS/3 ML VIAL ONE (12:13)
[2018-11-18] MEDS: Lisinopril 20 MG TAB PO SCH (12:24)
[2018-11-18] MEDS: HumaLOG 300 UNITS/3 ML VIAL SC PRN ×2 (12:37→17:55)
[2018-11-18 16:43] VITALS: BMI 28.8
[2018-11-18] MEDS ORDERED: Atorvastatin Calcium 20 MG TAB PO SCH (21:00)
[2018-11-18] MEDS: Metoprolol Tartrate 25 MG TAB PO SCH (21:32)
[2018-11-19] MEDS: Acetaminophen 325 MG TAB PO PRN ×2 (04:52→10:03)
[2018-11-19 05:41] LABS: #Basophils 0.1 thou/uL (0.0-0.2); #Eosinphils 0.2 thou/uL (0.0-0.7); #Lymphocytes 2.6 thou/uL (1.20-3.40); #Monocytes 0.5 thou/uL (0.11-0.59); #Neutrophils 2.3 thou/uL (1.40-6.50); %Basophils 1.6 % (0.0-1.0); %Eosinophils 3.6 % (0.0-10.0); %Lymphocytes 45.4 % (21.0-51.0); %Monocytes 8.8 % (0.0-10.0); %Neutrophils 40.6 % (42.0-75.0); Hemoglobin 12.3 g/dL (12.0-16.0); Mean Corpuscular HGB CONC 33.6 g/dL (32.0-36.0); Mean Corpuscular Hemoglobin 30.9 pg (27.0-31.0); Mean Corpuscular Volume 91.9 fL (78.0-98.0); Mean Platelet Volume 8.5 fL (7.4-10.4); Platelet Count 257 thou/uL (130-400); RBC Distribution Width 11.8 % (11.5-14.5); Red Blood Cell (RBC) Count 3.97 mill/uL (4.20-5.40); White Blood Cell (WBC) Count 5.7 thou/uL (4.8-10.8)
[2018-11-19 06:00] LABS: Anion Gap 12 mmol/L (10-20); BUN (Urea Nitrogen) 16 mg/dL (7.0-18.7); Calc. Creatinine Clearance 132 mL/min (70-130); Calcium 8.7 mg/dL (7.8-10.44); Carbon Dioxide 23 mmol/L (22-29); Chloride 109 mmol/L (98-107); Estimated GFR-MDRD Greater than 90; Glucose 85 mg/dL (70-105); Potassium 4.3 mmol/L (3.5-5.1); Sodium 140 mmol/L (136-145)
[2018-11-19] MEDS: Metoprolol Tartrate 25 MG TAB PO SCH (08:01)
[2018-11-19] MEDS: Famotidine 20 MG TAB PO SCH (08:01)
[2018-11-19] MEDS ORDERED: Aspirin Chewable 81 MG TAB PO SCH (09:00)
[2018-11-19] MEDS: Nicotine 14 MG PATCH TOP SCH (10:00)
[2018-11-19 12:17] VITALS: BP 152/92; TEMP 97.9
--- NOTE | 2018-11-19 13:28 | PDOC.PN ---
- Subjective Encounter Start Date: 11/19/18 Encounter Start Time: 13:27 Ms. Weiner was seen today in follow-up of uncontrolled hypertension and diabetes. She is complaining of bilateral leg pain. She has had this before and attributes this to diabetic nerve pain. - Objective MAR Reviewed: Yes Vital Signs & Weight: Vital Signs (12 hours) Temp Pulse Resp BP BP Pulse Ox 11/19/18 11:10 97.9 F 71 20 152/92 H 99 11/19/18 07:10 98.1 F 74 20 153/79 H 99 11/19/18 04:08 74 18 163/78 H Weight Weight 195 lb I&O: 11/18/18 11/19/18 11/20/18 06:59 06:59 06:59 Intake Total 480 Balance 480 Result Diagrams: 11/19/18 05:18 11/19/18 05:18 Additional Labs: Accuchecks 11/19/18 11/19/18 11/18/18 11:17 05:41 21:29 POC Glucose 100 87 219 H 11/18/18 17:23 POC Glucose 201 H Phys Exam - Physical Examination HEENT: PERRLA Respiratory: no wheezing, no rales, no rhonchi, clear to auscultation bilateral Cardiovascular: RRR, no significant murmur, no rub Gastrointestinal: soft, non-tender, no distention, positive bowel sounds Musculoskeletal: no edema, pulses present Hammer toe deformity Dx/Plan (1) Hypertensive urgency Code(s): I16.0 - HYPERTENSIVE URGENCY Status: Acute (2) Diabetes mellitus type 2 in nonobese Code(s): E11.9 - TYPE 2 DIABETES MELLITUS WITHOUT COMPLICATIONS Status: Chronic (3) Diabetic neuropathy Code(s): E11.40 - TYPE 2 DIABETES MELLITUS WITH DIABETIC NEUROPATHY, UNSP Status: Acute - Plan * Hypertensive Urgency- Blood pressure is better after re-starting her home medications * DM- blood glucose is stable. * Diabetic Neuropathy- will give a one time dose of Lyrica * Home today
[2018-11-19] MEDS ORDERED: Pregabalin 75 MG CAP PO SCH (13:30)
[2018-11-19] MEDS: Lisinopril 20 MG TAB PO SCH (13:40)
--- NOTE | 2018-11-19 17:13 | SS ---
DATE OF ADMISSION: 11/18/2018 DATE OF DISCHARGE: 11/19/2018 PRIMARY CARE PHYSICIAN: The patient currently does not have a primary care physician. DISCHARGE DISPOSITION: Home. DISCHARGE DIAGNOSES: 1. Hypertensive urgency. 2. Hypertension. 3. Diabetes, uncontrolled. 4. Dyslipidemia. 5. Diabetic neuropathy. 6. Medical noncompliance. DISCHARGE MEDICATIONS: Include; 1. Metoprolol 25 mg twice a day. 2. Lisinopril 20 mg daily. 3. Glipizide extended release 10 mg twice daily. 4. Lipitor 20 mg at bedtime. 5. Aspirin 81 mg daily. CODE STATUS: Full code. ALLERGIES: NO KNOWN DRUG ALLERGIES. HOSPITAL COURSE: Ms. Weiner is a pleasant 48-year-old female, who presented to the emergency room complaining of headache as well as chest pain. When she arrived to the ER, she was found to have blood pressure as high as 201/112. She says she had flu-like symptoms the week prior and as a result, did not take any blood pressure or diabetes medications. After her blood pressure and blood sugar were rendered under control, this was after her home medications were restarted. Her symptoms improved and her blood pressure as well as diabetes improved dramatically. She was able to be discharged home. She has been given a referral to the [facility] and to follow up in approximately 1 week and she says she has an appointment this coming Friday. Job ID: [id number]
--- NOTE | 2018-11-21 19:02 | EKG ---
Test Reason : HTN Blood Pressure : / mmHG Vent. Rate : 078 BPM Atrial Rate : 078 BPM P-R Int : 140 ms QRS Dur : 078 ms QT Int : 364 ms P-R-T Axes : 058 004 048 degrees QTc Int : 414 ms Normal sinus rhythm Possible Left atrial enlargement Borderline ECG Confirmed by JENNIFER SOSA MD ([id number]), editorial manager CARLY MARTE ([id number] on 11/21/2018 7:02:09 PM Referred By: Confirmed By:JENNIFER SOSA MD
== END 2018-11-19 13:56 | disposition home or self-care (01) ==
LOC: ERS 00:33 → ERHOLD 03:43 → 2SW 16:35
PROVIDERS: ADMIT Internal Medicine; ATTEND Internal Medicine
DX: I16.0 Hypertensive urgency (principal); E11.40 Type 2 diabetes mellitus with diabetic neuropathy, unspecified; E78.5 Hyperlipidemia, unspecified; Z91.14 Patient's other noncompliance with medication regimen; Z79.84 Long term (current) use of oral hypoglycemic drugs; Z79.82 Long term (current) use of aspirin; Z79.899 Other long term (current) drug therapy
CPT/HCPCS: 36415; 36416; 70450; 71045; 80048; 80053; 81003; 81015; 82550; 83880; 84484; 84703; 85025; 93005; 96374; G0378; J2270

== ENCOUNTER 2019-03-16 21:34 | Observation (INO) | payer SELFPAY ==
[~2019-03-16 21:34] MED LIST: Iopamidol 370 76% 100 ML VIAL ONE
[2019-03-16] MEDS ORDERED: Nitroglycerin 2% Ointment 1 INCH/1 GM Packet ONE (22:12)
[2019-03-16] MEDS ORDERED: Aspirin Chewable 81 MG TAB ONE (22:12)
[2019-03-16 22:15] LABS: #Basophils 0.1 thou/uL (0.0-0.2); #Eosinphils 0.2 thou/uL (0.0-0.7); #Lymphocytes 2.3 thou/uL (1.20-3.40); #Monocytes 0.5 thou/uL (0.11-0.59); #Neutrophils 4.1 thou/uL (1.40-6.50); %Monocytes 6.4 % (0.0-10.0); %Neutrophils 57.7 % (42.0-75.0); Hemoglobin 13.3 g/dL (12.0-16.0); Mean Corpuscular HGB CONC 33.7 g/dL (32.0-36.0); Mean Platelet Volume 8.5 fL (7.4-10.4); Platelet Count 297 thou/uL (130-400); RBC Distribution Width 12.8 % (11.5-14.5); Red Blood Cell (RBC) Count 4.28 mill/uL (4.20-5.40)
--- NOTE | 2019-03-16 22:18 | RAD ---
EXAM: Portable chest PROVIDED CLINICAL HISTORY: Chest pain COMPARISON: 11/18/2018 FINDINGS: Cardiac and mediastinal silhouette is within normal limits. No focal consolidation, pleural fluid or pneumothorax evident. IMPRESSION: No evidence for an acute cardiopulmonary process.
--- NOTE | 2019-03-16 22:35 | CT ---
Exam: CT brain PROVIDED CLINICAL HISTORY: Arms and hands tingling COMPARISON: 11/18/2018 FINDINGS: The ventricular system is normal in size and morphology. No evidence for intracranial hemorrhage or mass effect. The extracranial soft tissues and osseous structures demonstrate no evidence for an acute abnormality. Chronic left maxillary sinusitis is partially visualized. IMPRESSION: No evidence for intracranial hemorrhage or mass effect.
--- NOTE | 2019-03-16 23:46 | CT ---
EXAM: CT angiogram chest and abdomen PROVIDED CLINICAL HISTORY: Chest pain COMPARISON: None FINDINGS: The heart, pericardium and great vessels demonstrate a normal CT appearance. The lungs are free of si gnificant opacity. No pleural fluid or pneumothorax apparent. Simple cyst involves right kidney. The solid abdominal organs demonstrate an otherwise unremarkable C T appearance for the phase of contrast in which the study was acquired. Post cholecystectomy change. No bowel dilatation, inflammatory fat stranding, free fluid or free air apparent within the a bdomen. The abdominal aorta and its branches appear normal. The osseous structures demonstrate no concerning lytic or blastic lesions. IMPRESSION: No evidence for an acute process.
[2019-03-16 23:48] LABS: ALT (SGPT) 11 U/L (8-55); AST (SGOT) 13 U/L (5-34); Albumin 3.4 g/dL (3.5-5.0); Alkaline Phosphatase 112 U/L (40-150); Anion Gap 12 mmol/L (10-20); BUN (Urea Nitrogen) 21 mg/dL (7.0-18.7); Bilirubin, Total 0.2 mg/dL (0.2-1.2); Calc. Creatinine Clearance 0 mL/min (70-130); Calcium 9.4 mg/dL (7.8-10.44); Carbon Dioxide 28 mmol/L (22-29); Chloride 105 mmol/L (98-107); Estimated GFR-MDRD 79; Globulin 3.1 g/dL (2.4-3.5); Glucose 242 mg/dL (70-105); Potassium 4.8 mmol/L (3.5-5.1); Protein, Total 6.5 g/dL (6.0-8.3); Sodium 140 mmol/L (136-145)
[2019-03-17] MEDS ORDERED: Acetaminophen 325 MG TAB PO PRN (01:09)
[2019-03-17] MEDS ORDERED: Ondansetron ODT 4 MG TAB SL PRN (01:09)
[2019-03-17] MEDS ORDERED: Ondansetron PF 4 MG/2 ML Vial IVP PRN (01:09)
[2019-03-17 01:35] VITALS: BMI 27.4
[2019-03-17] MEDS ORDERED: traMADol HCl 50 MG TAB PO SCH (01:45)
[2019-03-17 02:12] LABS: Troponin I Less than 0.010 ng/mL (< 0.028)
[2019-03-17] MEDS ORDERED: tiZANidine HCl 4 MG TAB PO PRN (02:42)
[2019-03-17] MEDS ORDERED: traMADol HCl 50 MG TAB PO PRN (02:42)
[2019-03-17] MEDS ORDERED: Dextrose 50% Abboject 50 ML SYRINGE SLOW IVP PRN (02:47)
[2019-03-17] MEDS ORDERED: HumaLOG 300 UNITS/3 ML VIAL SC PRN ×2 (02:47)
[2019-03-17] MEDS ORDERED: Dextrose 5% in Water 1,000 ML IV PRN (02:47)
[2019-03-17] MEDS ORDERED: Nitroglycerin 0.4 MG TAB (25 Tab Bottle) SL PRN (02:48)
[2019-03-17] MEDS ORDERED: Labetalol HCl 100 MG/20 ML VIAL SLOW IVP PRN (02:48)
[2019-03-17 04:41] LABS: Hemoglobin A1c 9.1 % (4.0-6.0)
[2019-03-17 04:59] LABS: Cardiac Risk 3.3 (Less than 4.5)
[2019-03-17 05:02] LABS: Troponin I Less than 0.010 ng/mL (< 0.028)
--- NOTE | 2019-03-17 05:38 | HP ---
CHIEF COMPLAINT: Chest pain. HISTORY OF PRESENT ILLNESS: Ms. Helms is a very pleasant 49-year-old female with past medical history significant for hypertension, hyperlipidemia, diabetes mellitus, tobacco abuse, and previous TIA, who presented to the hospital with a 2-day history of intermittent chest discomfort. The patient states that she first began experiencing chest discomfort yesterday when she was at her place of employment. The patient began to feel hot and flushed, and was afraid her blood pressure was high, and so she went to the nurse on site at her facility, and had her blood pressure checked. Her blood pressure was told to be okay, but given her symptoms, she was told to go home and rest. The patient continued to have some chest discomfort that she describes as a tightness. It was non exertional. She denied any associated, diaphoresis or palpitations. She went back to work, but was told; however that she could not return without a doctor's note and so she went back home to rest. The patient began experiencing some different type of chest discomfort that she described as a gas pain, this pain was reproducible and different than the pressure she was experiencing before. In any case, she decided to present to the ER for further workup and treatment. On arrival, patient was mildly tachycardic. Her EKG showed no evidence of acute or dynamic ST or T-wave changes. Her initial troponin was negative. CTA of the chest was performed, which showed no evidence of dissection or pulmonary embolism. Upon my interview, along with her chest discomfort, patient states that she has been experiencing left lower extremity weakness off and on. She was in [employer] shopping with her daughter, when she felt as if she were dragging her leg, and her daughter noted on her symptoms as well. The patient denies any numbness or tingling in that extremity, but does describe weakness. She does also have a history of peripheral neuropathy, which causes her pain. REVIEW OF SYSTEMS: A 12-point review of systems performed. As just previously mentioned, patient does suffer from bilateral leg pain secondary to peripheral neuropathy. She has been experiencing some hot flashes recently as well. She has had some enlargement of the right clavicle, and recently had MRI and will have follow up with her orthopedic physician on March 26. Otherwise, her review of systems is negative. She denies any dysuria, fever, cough, or chills. She has had no sick contacts. ALLERGIES: NO KNOWN DRUG ALLERGIES. HOME MEDICATIONS: 1. Metoprolol tartrate 25 mg b.i.d. 2. Lisinopril 20 mg daily. 3. Glipizide 10 mg tablet one tablet p.o. b.i.d. 4. Tramadol 50 mg p.o. q.6 hours. 5. Tizanidine 4 mg p.o. q.6 hours p.r.n. 6. Lyrica 25 mg capsule one capsule p.o. b.i.d. SOCIAL HISTORY: The patient works at [employer]. She currently smokes one pack per day of cigarettes. She drinks occasionally and does not use illicit drugs. FAMILY HISTORY: Positive for diabetes mellitus. PAST MEDICAL HISTORY: 1. Type 2 diabetes mellitus. 2. Previous TIA. 3. Obesity. 4. Hypertriglyceridemia. 5. Hypertension with recent admission for accelerated hypertension and chest pain. 6. Diabetic peripheral neuropathy. PAST SURGICAL HISTORY: Partial hysterectomy, tubal ligation, cholecystectomy. PHYSICAL EXAMINATION: VITAL SIGNS: Blood pressure 173/81, pulse 86, respirations are 18, O2 saturation is 99% on room air, temperature is 97.8. GENERAL: This is a mildly obese female, resting comfortably in bed, in no acute distress. HEENT: Head is atraumatic and normocephalic. Mucous membranes are moist. NECK: Trachea is midline. No JVD. CV: S1 and S2. Regular rate and rhythm. No appreciable murmurs, rubs, or gallops. LUNGS: Regular respiratory rate and pattern. No rhonchi or wheezes, although overall decreased vesicular breath sounds. ABDOMEN: Positive bowel sounds. Soft, nontender. EXTREMITIES: No edema, the patient's lower extremities are warm and well perfused. At this time, I can appreciate no focal weaknesses. NEUROLOGIC: Cranial nerves 2 through 12 are grossly intact. Nonfocal on my exam. LABORATORY DATA: Hemoglobin 13.3, white blood cell count 7.0, hematocrit 39.3, platelet count is 297. Sodium 140, potassium 4.8, anion gap is 12, creatinine 0.92, glucose is 242. AST, ALT, alkaline phosphatase all within normal limits. Troponin negative x2. ASSESSMENT: 1. Chest pain, recurrent, in a patient with multiple risk factors including long-standing diabetes mellitus, hypertension, and tobacco abuse. 2. Left lower extremity weakness, intermittent, questionable etiology at this time, although the patient has numerous risk factors for cerebrovascular accident. 3. History of transient ischemic attack. 4. Diabetes mellitus type 2. 5. Hypertension. 6. Tobacco abuse. 7. Peripheral diabetic neuropathy. PLAN: The patient has been admitted for chest pain rule out and risk stratification. Given that this is her 2nd admission for recurrent chest pain recently, we will perform a nuclear stress test to assess for reversible ischemia. Continue aspirin and statin. We will obtain fasting lipid panel in the morning, along with a hemoglobin A1c. Given her multiple risk factors for cardiovascular disease and history of TIA, we will perform MRI to rule out prior or subacute CVA. GI and DVT prophylaxis have been ordered along with sliding scale insulin. Further recommendations based on findings of noninvasive testing. Job ID: [id number]
[2019-03-17] MEDS ORDERED: Lisinopril 20 MG TAB PO SCH (09:00)
[2019-03-17] MEDS ORDERED: Metoprolol Tartrate 25 MG TAB PO SCH (09:00)
[2019-03-17] MEDS ORDERED: Pregabalin 25 MG CAP PO SCH (09:00)
--- NOTE | 2019-03-17 12:40 | MRI ---
MRI Brain WO Con: 03/17/2019 2:45 AM CLINICAL HISTORY: Left leg weakness and bilateral finger numbness. TECHNIQUE: Multiplanar, multisequence images were obtained of the brain. COMPARISON: MR the brain dated April 27, [address] the brain dated March 16, 2019. FINDINGS: Extra axial spaces: Normal in size and morphology for the patient's age. Hemorrhage: None. Ventricular system: Normal in size and morphology for the patient's age. Basal cisterns: Normal. Cerebral parenchyma: Normal. Midline shift: None. Cerebellum: Normal. Brainstem: Normal. OTHER: Calvarium: Normal. Vascular system: Normal. Visualized Paranasal sinuses: There is a prominent abnormal signal seen diffusely filling the left ma xillary sinus. There is scattered mucosal thickening within the ethmoid air cells. There is thickening of the bone of the left maxillary sinus seen on CT suspicious for changes of chronic left maxillary sinusitis. There is restricted diffusion within the left maxillary sinus.. Visualized Orbits: Normal. Visualized upper cervical spine: Normal. Sella and skull base: Normal. IMPRESSION: 1. No acute intracranial abnormality. 2. Findings of chronic left maxillary sinusitis with complete opacification of the left maxillary sin us. Mild paranasal sinus disease of the ethmoid air cells.
--- NOTE | 2019-03-17 12:44 | NM ---
Nuclear medicine Cardiac myocardial perfusion SPECT Ejection fraction study Wall motion cine: DATE:03/17/2019 2:43 AM INDICATION: Chest pain TECHNIQUE: Number of days:2 Rest Study: Technetium 99m-sestamibi (Cardiolite) dose:10.10 mCi Stress study: Technetium 99m-sestamibi (Cardiolite) dose:31.10 mCi FINDINGS: Cardiac (myocardial perfusion) SPECT There are no reversible myocardial perfusion defects. Ejection fraction study Left ventricular EF = 66% Wall motion cine Normal wall motion and thickening IMPRESSION: No evidence of reversible myocardial ischemia.
[2019-03-17] MEDS ORDERED: ADENOSINE 60 MG/20 ML VIAL ONE (13:26)
[2019-03-17 15:55] VITALS: BP 138/88; TEMP 98.5
[2019-03-17] MEDS ORDERED: Atorvastatin Calcium 20 MG TAB PO SCH (21:00)
== END 2019-03-17 17:22 | disposition home or self-care (01) ==
LOC: ERS 21:34 → 2SW 03-17 01:01
PROVIDERS: ADMIT Family Medicine; ATTEND Family Medicine
DX: R07.89 Other chest pain (principal); I10 Essential (primary) hypertension; F17.210 Nicotine dependence, cigarettes, uncomplicated; E11.42 Type 2 diabetes mellitus with diabetic polyneuropathy; E78.1 Pure hyperglyceridemia; R53.1 Weakness; J32.8 Other chronic sinusitis; E66.9 Obesity, unspecified; Z68.27 Body mass index [BMI] 27.0-27.9, adult; Z86.73 Personal history of transient ischemic attack (TIA), and cerebral infarction without residual deficits; Z79.84 Long term (current) use of oral hypoglycemic drugs; Z79.899 Other long term (current) drug therapy
CPT/HCPCS: 36415; 36416; 70450; 70551; 71045; 71275; 78452; 80053; 80061; 83036; 84484; 85025; 93005; 93017; 94760; A9500; G0378; J0153; Q9967

== ENCOUNTER 2019-07-12 08:22 | Emergency (ER) | payer SELFPAY ==
--- NOTE | 2019-07-12 09:15 | RAD ---
4 views left knee: 07/12/2019 COMPARISON: None HISTORY: Fall, knee pain FINDINGS: There is a prominent knee joint effusion noted on the lateral examination. There is moderat e patellofemoral joint space narrowing with mild posterior patellar osteophyte formation. No displaced fracture or evidence of dislocation is appreciated. IMPRESSION: No fracture or dislocation is evident. However, there is a large knee joint effusion. Thi s knee joint effusion may be on the basis of a radio-occult fracture. Thus, CT of the left knee is suggested. Knee joint effusion may also be on the basis of degenerative change.
--- NOTE | 2019-07-12 09:39 | RAD ---
2 VIEWS LEFT TIBIA AND FIBULA: Date: 07/12/19 COMPARISON: None. HISTORY: Fall with knee pain. FINDINGS: 2 views of the left tibia and fibula show no evidence of acute fracture or dislocation. No degenerati ve changes are seen. No soft tissue swelling is seen. IMPRESSION: Unremarkable exam. POS: TPC
--- NOTE | 2019-07-12 10:02 | CT ---
CT left knee noncontrast: DATE: 07/12/2019 HISTORY: 49-year-old female with joint effusion. Pain. Fall. Rule out occult fracture. FINDINGS: There is a nondisplaced fracture with oblique and transverse linear lucencies at the posterior aspect of the tibial plateau, involving posterior articular surface, centered near midline, extending to the right and left. This is not visible on the axial images. These are best visualized on coronal rec onstructions. The fracture lines run across bases of the medial and lateral tibial spines. There is a moderate-sized joint effusion which has density close to 40 Hounsfield units, consistent w ith blood. The PCL, quadriceps and patellar tendons, and medial and lateral collateral ligaments, demonstrate no complete tear. The ACL also demonstrates no complete tear. Mild articular cartilage th inning with joint space narrowing at medial compartment with minimal osteophytosis. Mild joint space narrowing at Patellofemoral compartment where there are small marginal osteophytes. Lateral com partment joint space is maintained. IMPRESSION: 1. Nondisplaced fracture of posterior aspect of the tibial plateau, including intra-articular surface involvement. 2. Moderate-sized hemarthrosis.
[2019-07-12] MEDS ORDERED: HYDROcodone/Acetaminophen 10/325 mg Tablet ONE (10:58)
== END 2019-07-12 11:09 | disposition home or self-care (01) ==
LOC: ERS 08:22
DX: S82.145A Nondisplaced bicondylar fracture of left tibia, initial encounter for closed fracture (principal); E11.9 Type 2 diabetes mellitus without complications; F17.210 Nicotine dependence, cigarettes, uncomplicated; W18.30XA Fall on same level, unspecified, initial encounter